=== PATIENT | male | born 1985 | race Caucasian/White ===

== ENCOUNTER 2017-01-06 06:16 | Emergency (ER) | payer OTHER ==
[2017-01-06 07:02] VITALS: BP 127/87; PULSE 75; TEMP 98.8; BMI 23.0
[2017-01-06] MEDS ORDERED: IBUPROFEN 600 MG TABLET (FP) PO ONE ×2 (07:14→08:02)
--- NOTE | 2017-01-06 07:19 | PDOC ---
History of Present Illness - General Chief Complaint: Shortness of Breath Stated Complaint: RESPIRATORY, COLD SYMPTOMS Time Seen by Provider: 01/06/17 07:08 History Source: Patient Exam Limitations: No Limitations - History of Present Illness Initial Comments: 01/06/17 07:15 31 yr male with c/o chest pain and cough . No fever or chills. Pt states he has had sinus congestion and cough for 2 weeks, this am woke up with pain to the middle of chest reproducable with deep breath and cough. Timing/Duration: reports: just prior to arrival Severity: reports: moderate Modifying Factors: improves with: coughing Past History - Past Medical History Allergies/Adverse Reactions: Allergies Allergy/AdvReac Type Severity Reaction Status Date / Time No Known Allergies Allergy Verified 01/06/17 07:02 Home Medications: Ambulatory Orders Azithromycin [Zithromax 250mg Tablets -] 250 mg PO UTDICT #6 tab 01/06/17 Benzonatate [Tessalon Pearls -] 200 mg PO TID PRN #42 cap 01/06/17 Fluticasone Prop 0.05% Nasal [Flonase -] 1 - 2 spray NS DAILY #1 spray.pump 02/17 Other medical history: Pt denies - Family Disease History Comment:: 01/06/17 07:17 none relevant - Psycho/Social/Smoking Cessation Hx Suicidal Ideation: No Smoking History: Never smoked Hx Alcohol Use: No Drug/Substance Use Hx: No Substance Use Type: None Respiratory Specific PMHX - Complaint Specific PMHX Angina: No Bronchitis: No Pneumonia: No Pulmonary Embolus: No TB (Tuberculosis): No Review of Systems - Review of Systems Able to Perform ROS?: Yes Is the patient limited Swedish proficient: No Constitutional: No: Symptoms Reported HEENTM: Yes: See HPI Respiratory: Yes: See HPI Cardiac (ROS): Yes: See HPI *Physical Exam - Vital Signs Last Vital Signs Temp Pulse Resp BP Pulse Ox 98.8 F 75 19 127/87 100 01/06/17 06:58 01/06/17 06:58 01/06/17 06:58 01/06/17 06:58 01/06/17 06:58 - Physical Exam General Appearance: Yes: Nourished, Appropriately Dressed HEENT: positive: EOMI, MULU, Normal ENT Inspection, TMs Normal, Pharynx Normal Neck: positive: Supple Respiratory/Chest: positive: Chest Tender (anterior tenderness), Lungs Clear, Normal Breath Sounds. negative: Rhonchi, Stridor, Wheezing Cardiovascular: positive: Regular Rhythm, Regular Rate Musculoskeletal: positive: Normal Inspection Extremity: positive: Normal Capillary Refill, Normal Inspection, Normal Range of Motion Integumentary: positive: Normal Color, Dry, Warm Neurologic: positive: Fully Oriented, Alert, Normal Mood/Affect, Normal Response , Motor Strength 5/5 Heart Score/ECG Review - ECG Impressions Normal ECG: Yes Comment:: 01/06/17 07:18 signed by sinus leon 58 early repolarization otherwise normal EKG ED Treatment Course - RADIOLOGY Radiology Studies Ordered: Category Date Time Status CHEST PA & LAT [RAD] Stat Radiology 01/06/17 07:14 Ordered Medical Decision Making - Medical Decision Making 01/06/17 07:37 cc: cough, chest pain vitals stable pain reproducable with cough and deep breath will get EKG, CXR *DC/Admit/Observation/Transfer Diagnosis at time of Disposition: Bronchitis - Discharge Dispostion Disposition: HOME Condition at time of disposition: Good - Prescriptions Prescriptions: Fluticasone Prop 0.05% Nasal [Flonase -] 1 - 2 spray NS DAILY #1 spray.pump Benzonatate [Tessalon Pearls -] 200 mg PO TID PRN #42 cap PRN Reason: Cough Azithromycin [Zithromax 250mg Tablets -] 250 mg PO UTDICT #6 tab - Patient Instructions Additional Instructions: drink pleanty of fluids take motrin as needed for any pain take the prescribed medications as directed follow with your doctor in 3-5 days for follow up Return to ER if any worsening symptoms
[2017-01-06] MEDS ORDERED: guaiFENesin 200 MG/10 ML 10 ML UNIT-DOSE CUPS PO ONE (07:37)
[2017-01-06] MEDS ORDERED: guaiFENesin 200 MG/10 ML 10 ML UNIT-DOSE CUPS ONE (08:03)
--- NOTE | 2017-01-06 13:24 | EKG ---
Test Reason : Blood Pressure : / mmHG Vent. Rate : 058 BPM Atrial Rate : 058 BPM P-R Int : 124 ms QRS Dur : 084 ms QT Int : 370 ms P-R-T Axes : 027 066 046 degrees QTc Int : 363 ms SINUS BRADYCARDIA EARLY REPOLARIZATION OTHERWISE NORMAL ECG NO PREVIOUS ECGS AVAILABLE Confirmed by ALEIDA MANNING, EKTA ([id number]) on 01/06/2017 1:24:03 PM Referred By: Confirmed By:EKTA SHIN MD
== END 2017-01-06 08:49 | disposition home or self-care (01) ==
LOC: JER 06:16
DX: J40 Bronchitis, not specified as acute or chronic (principal)
CPT/HCPCS: 71020-TC; 93005; 93010; 99281-25